=== PATIENT | male | born 1970 | race Two or more races ===

== ENCOUNTER 2023-09-20 10:21 | Emergency (ER) | payer OTHER ==
[~2023-09-20] VITALS: Ht 177.8 cm; Wt 90.9 kg
[2023-09-20 11:19] VITALS: BP 145/91; PULSE 96; RESP 17; TEMP 98.6; O2SAT 98
[2023-09-20] MEDS ORDERED: IBUP-1455 PO (12:23)
[2023-09-20] MEDS ORDERED: CYCL-837 PO (12:23)
== END 2023-09-20 12:26 | disposition home or self-care (01) ==
LOC: EDBD 10:21 → ER 10:27
DX: S40.012A Contusion of left shoulder, initial encounter (principal); S16.1XXA Strain of muscle, fascia and tendon at neck level, initial encounter; V89.2XXA Person injured in unspecified motor-vehicle accident, traffic, initial encounter; Y93.89 Activity, other specified; Y92.89 Other specified places as the place of occurrence of the external cause; Y99.8 Other external cause status